=== PATIENT | male | born 1995 | race Caucasian/White ===

== ENCOUNTER → 2019-05-30 | Outpatient (REF) | payer BC | LOC: M LAB LCGH 15:10 | PROVIDERS: ATTEND Nurse Practitioner Family | DX: D48.9 Neoplasm of uncertain behavior, unspecified (principal) ==

== ENCOUNTER → 2025-02-08 | Day surgery (SDC) | payer OTHER ==
[~2025-02-08] VITALS: Ht 177.8 cm; Wt 103.4 kg
[~2025-02-08] MED LIST: LIDOCAINE 2% 100MG/5ML SDV (FOR ANES.) As Ordered ONE; LR 1,000 ML IV SCH; MEPERIDINE 25 MG/ML 1ML VIAL IV PRN; METOCLOPRAMIDE INJ 10MG/2ML VIAL IV PRN; MIDAZOLAM INJ 2MG/2ML VIAL As Ordered ONE; ONDANSETRON 4MG 2ML VIAL As Ordered ONE; ONDANSETRON 4MG 2ML VIAL IV PRN; ROCURONIUM BROMIDE 50MG/5ML VIAL As Ordered ONE; SUGAMMADEX SODIUM 500 MG/5 ML VIAL (BRIDION) As Ordered ONE; diphenhydrAMINE 50MG/ML VIAL IV PRN; fentaNYL 100 MCG/2 ML INJECTION As Ordered ONE; fentaNYL 100 MCG/2 ML INJECTION IV PRN; oxyCODONE 5MG TAB PO PRN; propofoL 200 MG/20 ML VIAL As Ordered ONE
[2025-02-08] MEDS: CETACAINE SPRAY 5GM As Ordered ONE (09:47)
[2025-02-08] MEDS: EPINEPHrine 1MG/10ML SYRINGE 1.5IN As Ordered ONE (10:14)
[2025-02-08 11:10] VITALS: TEMP 96.3
[2025-02-08 11:37] VITALS: BP 122/72; O2SAT 96
== END | disposition home or self-care (01) ==
LOC: M SDC 06:46
PROVIDERS: ATTEND Internal Medicine Pulmonary Disease
DX: R59.0 Localized enlarged lymph nodes (principal); Z88.0 Allergy status to penicillin
CPT/HCPCS: 31629; 31654; 71045; 88173; 88305; J2250; J2405; J3010